=== PATIENT | female | born 1965 | race Caucasian/White ===

== ENCOUNTER 2022-04-17 17:13 | Observation (INO) | payer BC ==
[~2022-04-17] VITALS: Ht 157.5 cm; Wt 61.2 kg
[2022-04-17 18:06] LABS: HEMOGLOBIN 17.6 gm/dl (12.3-15.3); RED BLOOD COUNT 5.16 M/UL (4.00-5.10)
[2022-04-17 18:38] LABS: BUN/CREATININE RATIO 15 (0-10)
[2022-04-18 03:09] LABS: HEMOGLOBIN 15.8 gm/dl (12.3-15.3); RED BLOOD COUNT 4.7 M/UL (4.00-5.10); WHITE BLOOD COUNT 10.3 K/UL (4.5-11.0)
[2022-04-18 03:38] LABS: BUN/CREATININE RATIO 15 (0-10)
[2022-04-18] MEDS ORDERED: CEFDINIR300 MG PO (10:39)
[2022-04-18] MEDS ORDERED: FLONASE ALLER15.8 ML (10:39)
[2022-04-18] MEDS ORDERED: ZEBETA 5 MG TAB5 MG PO (10:40)
[2022-04-18] MEDS ORDERED: IPRATROPIUM BRO15 ML INH (10:40)
[2022-04-18] MEDS ORDERED: ASPIRIN81 MG PO (16:04)
[2022-04-18] MEDS ORDERED: ATORVASTATIN CA20 MG PO (16:04)
[2022-04-18] MEDS ORDERED: PLAVIX 75 MG TA75 MG PO (16:06)
[2022-04-18] MEDS ORDERED: NICOTINE PATCH1 EAC1 TOP (16:06)
== END 2022-04-18 17:52 | disposition home or self-care (01) ==
LOC: ER1 17:13 → CDU 18:36 → M/S 20:08
PROVIDERS: Physician Assistant Medical; ADMIT Internal Medicine
DX: I63.511 Cerebral infarction due to unspecified occlusion or stenosis of right middle cerebral artery (principal); R29.810 Facial weakness; R47.1 Dysarthria and anarthria; R03.0 Elevated blood-pressure reading, without diagnosis of hypertension; I49.9 Cardiac arrhythmia, unspecified; J32.9 Chronic sinusitis, unspecified; E78.1 Pure hyperglyceridemia; F17.210 Nicotine dependence, cigarettes, uncomplicated; D58.2 Other hemoglobinopathies; Z72.89 Other problems related to lifestyle; Z79.899 Other long term (current) drug therapy
CPT/HCPCS: ECHO; 36415; 70450; 70496; 70498; 70551; 80053; 80061; 82550; 82553; 83036; 83735; 84484; 85025; 85027; 85610; 92507; 92610; 93005; 93270; 93306; 97161; 97165; 99285; G0378; G0480; Q9967

== ENCOUNTER → 2022-05-06 | Outpatient (CLI) | payer BC ==
[~2022-05-06] MED LIST: ASPIRIN81 MG PO; ATORVASTATIN CA20 MG PO; CEFDINIR300 MG PO; FLONASE ALLER15.8 ML; IPRATROPIUM BRO15 ML INH; NICOTINE PATCH1 EAC1 TOP; PLAVIX 75 MG TA75 MG PO; ZEBETA 5 MG TAB5 MG PO
== END ==
LOC: KOH-I 15:30
DX: J01.01 Acute recurrent maxillary sinusitis (principal)
CPT/HCPCS: 70486